=== PATIENT | female | born 1995 | race Caucasian/White ===

== ENCOUNTER 2022-08-20 12:38 | Inpatient (IN) ==
[~2022-08-20 12:38] MED LIST: NALOXONE HCL 0.4 MG/1 ML VIAL/CARP ONE
[2022-08-20] MEDS ORDERED: ONDANSETRON INJ 2 MG/ML 2 ML VIAL IV STA (12:44)
[2022-08-20] MEDS ORDERED: SODIUM CHLORIDE 0.9% IV STA (12:44)
[2022-08-20] MEDS ORDERED: NALOXONE HCL IV STA (12:44)
[2022-08-20] MEDS ORDERED: SODIUM CHLORIDE 0.9% 1000ML 1,000 ML IV ONE ×2 (12:56→14:20)
[2022-08-20] MEDS ORDERED: NALOXONE HCL 0.4 MG/1 ML VIAL/CARP IV ONE (13:00)
[2022-08-20 13:10] LABS: Basophils # (auto) 0.03 K/uL (0-0.2); Basophils % (auto) 0.3 %; Eosinophils # (auto) 0.13 K/uL (0-0.50); Eosinophils % (auto) 1.4 %; Hematocrit (blood only) 43.1 % (37.0-47.0); Hemoglobin 15.8 g/dl (12.0-16.0); Immature Granulocytes # (auto) 0.02 K/uL (0.01-0.20); Immature Granulocytes % (auto) 0.2 %; Lymphocytes # (auto) 1.93 K/uL (1.2-3.4); Lymphocytes % (auto) 20.6 %; Mean Corpuscular Hemoglobin 29.5 pg (25.0-34.0); Mean Corpuscular Hgb Conc 36.7 g/dL (32.0-36.0); Mean Corpuscular Volume 80.4 fL (80.0-100.0); Mean Platelet Volume 10.6 fL (9.4-12.4); Monocytes # (auto) 0.92 K/uL (0.11-0.59); Monocytes % (auto) 9.8 %; Neutrophils # (auto) 6.35 K/uL (1.40-6.50); Neutrophils % (auto) 67.7 %; Platelet Count 395 K/uL (130-400); RDW Coefficient of Variation 11.9 % (11.5-14.5); RDW Standard Deviation 34.8 fL (36.4-46.3); Red Blood Count 5.36 M/uL (4.20-5.40); White Blood Count 9.38 K/ul (4.8-10.8)
--- NOTE | 2022-08-20 13:26 | CT Scan Report ---
HEAD CT NONCONTRAST CT DOSE: 1123.96 mGy.cm HISTORY: Altered mental status. TECHNIQUE: Multiaxial CT images of the head were performed without the use of intravenous contrast. A utomated exposure control was utilized for this study. A dose lowering technique was utilized adheri ng to the principles of ALARA. Comparison: None. Findings: Focal mucosal thickening within the right maxillary sinus. The remaining paranasal sinuses and mastoid air cells are clear. The calvarium and skull base are intact. The ventricles and sulci ar e within normal limits. There is no mass, hematoma, midline shift, or acute infarct. Impression: No acute intracranial abnormality. ACT 112: Negative or not required by law. Electronically signed by: Bhupendra Anton M.D. 08/20/2022 1:25 PM
[2022-08-20 13:28] LABS: Alanine Aminotransferase 20 U/L (7-52); Albumin Level 4.4 gm/dl (3.4-5.0); Alkaline Phosphatase 43 U/L (34-104); Anion Gap 14 (3-11); Aspartate Aminotransferase 24 U/L (13-39); BUN Creatinine Ratio 17.7 (10-20); Bilirubin Direct 0.1 mg/dl (0-0.2); Bilirubin,Total 0.4 mg/dl (0.2-1.0); Blood Urea Nitrogen 14 mg/dl (6-23); Calcium 9.8 mg/dl (8.6-10.3); Carbon Dioxide 19 mmol/L (21-32); Chloride 107 mmol/L (98-107); Creatine Kinase 72 U/L (26-192); Creatinine Clr Calc Pharmacy 111.5 ml/min; Est GFR (African American) 118.9 ml/min; Est GFR (Non-African American) 102.6 ml/min; Glucose 156 mg/dl (70-99(Fasting)); Lipase 38 U/L (11-82); Magnesium 1.9 mg/dl (1.7-2.4); Potassium 2.9 mmol/L (3.5-5.1); Sodium 140 mmol/L (136-145); Total Protein 7.7 gm/dl (6.0-8.3)
--- NOTE | 2022-08-20 13:36 | XRay Report ---
XR chest 1V portable HISTORY: Altered mental status. Found down. COMPARISON: None. FINDINGS: The lungs are clear. Cardiac silhouette is normal in size. No pleural effusions. No pneumot horax. IMPRESSION: No acute process. ACT 112: Negative or not required by law. Electronically signed by: Bhupendra Anton M.D. 08/20/2022 1:34 PM
[2022-08-20 13:37] LABS: Acetaminophen < 3 ug/ml (10-30); Salicylate < 3.0 mg/dl (3.0-30)
[2022-08-20 13:39] LABS: Partial Thromboplastin Time 27.9 Seconds (21.0-31.0); Prothrombin Time 10.8 Seconds (9.0-12.0)
[2022-08-20 13:47] LABS: Base Excess VBG -0.9 mEq/L; HCO3 VBG 19 mmol/L; Oxygen Saturation VBG 99.8 %; PCO2 VBG 20 mmHg (38-50); PO2 VBG 153 mmHg; pH VBG 7.58 (7.36-7.41)
[2022-08-20 13:53] LABS: Appearance Urine Clear (Clear); Bacteria Urine Automated Negative (Negative); Bilirubin Urine Negative (Negative); Blood Urine Negative (Negative); Color Urine Yellow; Epithelial Cell Urine Auto >30 /lpf (0-5); Glucose Urine UA Negative (Negative); Ketones Urine Trace (Negative); Leukocyte Esterase Urine Trace (Negative); Nitrite Urine Negative (Negative); Protein Urine Negative (Negative); RBC Urine Automated 0-4 /hpf (0-4); Specific Gravity Urine 1.013 (1.000-1.030); Urobilinogen Urine Negative (Negative); pH Urine 7.5 (4.5-7.5)
--- NOTE | 2022-08-20 13:54 | CT Scan Report ---
CT cervical spine wo con CLINICAL HISTORY: ams found down TECHNIQUE: Multidetector row helical CT of the cervical spine was performed without administration of intravenous contrast. Coronal and sagittal reformations were obtained. Automated dose lowering techn iques and/or adjustment according to patient size were utilized for this exam. Comparison: None available at the time of this dictation. FINDINGS: No acute fractures or subluxations are identified. The vertebral body heights and disk spaces are wel l maintained. The alignment is normal. Soft tissues are unremarkable. IMPRESSION: No evidence of acute bony injury. ACT 112: Negative or not required by law. Electronically signed by: Marcus Kwon M.D. 08/20/2022 1:53 PM
[2022-08-20 14:14] LABS: Amphetamines+Metham, Urine Neg (Neg); Barbiturates, Urine Neg (Neg); Benzodiazepine, Urine Pos (Neg); Cocaine, Urine Pos (Neg); MDMA (Ecstacy), Urine Neg (Neg); Methadone, Urine Neg (Neg); Opiate, Urine Pos (Neg); Phencyclidine, Urine Neg (Neg)
--- NOTE | 2022-08-20 14:16 | Emergency Department Note ---
History of Present Illness General Chief complaint: Unresponsive Stated complaint: UNRESPONSIVE Time Seen by Provider: 08/20/22 12:43 Source: EMS History of Present Illness Provider complaint: Unresponsive Onset (ago): hour(s) 1 26-year-old female from [facility] facility. Patient is currently there for opioid treatment. Patient was found down in an outdoor gazebo. On arrival the patient was breathing agonal he and diaphoretic. EMS reports that the patient had pinpoint pupils. Patient was given 1 mg of Narcan which improved her mental status. Patient keeps saying "I did not do anything". Home Medications Medication Instructions Recorded Confirmed Type albuterol sulfate 90 mcg/actuation 2 puff inhalation Q4 PRN Shortness 08/20/22 08/20/22 History aerosol inhaler Of Breath Or Wheezing clonidine HCl 0.1 mg tablet 0.1 mg PO TID PRN 08/20/22 08/20/22 History anxiety/restlessness HR>/=70 & BP>100/70 escitalopram oxalate 20 mg tablet 20 mg PO DAILY 08/20/22 08/20/22 History (Lexapro) hydroxyzine pamoate 50 mg capsule 50 mg PO TID PRN as directed 08/20/22 08/20/22 History (Vistaril) multivitamin 1 tab PO DAILY 08/20/22 08/20/22 History olanzapine 10 mg tablet (Zyprexa) 10 mg PO HS 08/20/22 08/20/22 History propranolol 20 mg tablet 20 mg PO Q12 PRN Migraine Headache 08/20/22 08/20/22 History rizatriptan 10 mg tablet 10 mg PO UD PRN Headache 08/20/22 08/20/22 History Allergies Allergy/AdvReac Type Severity Reaction Status Date / Time No Known Allergies Allergy Unverified 08/20/22 15:18 Past Med/Surg History Medical History Asthma Bulimia Depression with anxiety Migraines Polysubstance abuse Suicide attempt Social History Smoking Status: Unknown if ever smoked Feels Safe at Home: Yes Physical Exam Vital Signs Vital Signs - 24 hr 08/20/22 12:25 08/20/22 12:31 08/20/22 12:43 Temperature 33.3 C L Temperature Source Rectal Pulse Rate 64 Pulse Rate [Apical] Pulse Rate from SpO2 Sensor Respiratory Rate 44 H Respiratory Effort / Characteristics Respiratory Depth Shallow Respiratory Pattern Irregular Tachypnea Blood Pressure 147/66 H Blood Pressure [Right Arm] Blood Pressure Mean 93 Blood Pressure Mean [Right Arm] Pulse Oximetry 100 Oxygen Delivery Method Room Air Room Air Room Air Sepsis Recent Fever Within 48 Hours No Sepsis New/Unexplained Change in Mental Status No Sepsis Action Taken by Nursing No Action Required 08/20/22 12:55 08/20/22 12:48 08/20/22 12:51 Temperature Temperature Source Pulse Rate 65 66 Pulse Rate [Apical] Pulse Rate from SpO2 Sensor Respiratory Rate Respiratory Effort / Characteristics Respiratory Depth Respiratory Pattern Blood Pressure 128/68 Blood Pressure [Right Arm] Blood Pressure Mean 88 Blood Pressure Mean [Right Arm] Pulse Oximetry Oxygen Delivery Method Sepsis Recent Fever Within 48 Hours Sepsis New/Unexplained Change in Mental Status Sepsis Action Taken by Nursing 08/20/22 12:51 08/20/22 12:55 08/20/22 12:55 Temperature Temperature Source Pulse Rate 76 65 Pulse Rate [Apical] Pulse Rate from SpO2 Sensor 65 Respiratory Rate Respiratory Effort / Characteristics Respiratory Depth Respiratory Pattern Blood Pressure 139/69 Blood Pressure [Right Arm] Blood Pressure Mean 92 Blood Pressure Mean [Right Arm] Pulse Oximetry 100 Oxygen Delivery Method Sepsis Recent Fever Within 48 Hours Sepsis New/Unexplained Change in Mental Status Sepsis Action Taken by Nursing 08/20/22 13:00 08/20/22 13:00 08/20/22 13:18 Temperature Temperature Source Pulse Rate 66 Pulse Rate [Apical] Pulse Rate from SpO2 Sensor 69 Respiratory Rate Respiratory Effort / Characteristics Respiratory Depth Respiratory Pattern Blood Pressure 137/70 132/73 Blood Pressure [Right Arm] Blood Pressure Mean 92 92 Blood Pressure Mean [Right Arm] Pulse Oximetry 100 Oxygen Delivery Method Sepsis Recent Fever Within 48 Hours Sepsis New/Unexplained Change in Mental Status Sepsis Action Taken by Nursing 08/20/22 13:18 08/20/22 13:30 08/20/22 13:30 Temperature 33.3 C L 33.4 C L Temperature Source Pulse Rate 65 65 Pulse Rate [Apical] Pulse Rate from SpO2 Sensor 65 65 Respiratory Rate Respiratory Effort / Characteristics Respiratory Depth Respiratory Pattern Blood Pressure 132/73 Blood Pressure [Right Arm] Blood Pressure Mean 92 Blood Pressure Mean [Right Arm] Pulse Oximetry 100 100 Oxygen Delivery Method Sepsis Recent Fever Within 48 Hours Sepsis New/Unexplained Change in Mental Status Sepsis Action Taken by Nursing 08/20/22 13:45 08/20/22 13:54 08/20/22 13:54 Temperature 33.4 C L 33.4 C L Temperature Source Pulse Rate 65 61 Pulse Rate [Apical] Pulse Rate from SpO2 Sensor 66 61 Respiratory Rate Respiratory Effort / Characteristics Respiratory Depth Respiratory Pattern Blood Pressure 122/69 Blood Pressure [Right Arm] Blood Pressure Mean 86 Blood Pressure Mean [Right Arm] Pulse Oximetry 100 100 Oxygen Delivery Method Sepsis Recent Fever Within 48 Hours Sepsis New/Unexplained Change in Mental Status Sepsis Action Taken by Nursing 08/20/22 14:00 08/20/22 14:15 08/20/22 14:30 Temperature 33.4 C L 33.5 C L Temperature Source Pulse Rate Pulse Rate [Apical] Pulse Rate from SpO2 Sensor 60 Respiratory Rate Respiratory Effort / Characteristics Respiratory Depth Respiratory Pattern Blood Pressure 130/66 Blood Pressure [Right Arm] Blood Pressure Mean 87 Blood Pressure Mean [Right Arm] Pulse Oximetry 100 Oxygen Delivery Method Sepsis Recent Fever Within 48 Hours Sepsis New/Unexplained Change in Mental Status Sepsis Action Taken by Nursing 08/20/22 14:30 08/20/22 15:45 08/20/22 14:45 Temperature 33.6 C L 34.8 C L 33.8 C L Temperature Source Beard Cath ( Temp Sensing) Pulse Rate 63 67 Pulse Rate [Apical] 66 Pulse Rate from SpO2 Sensor 72 Respiratory Rate 35 H 20 31 H Respiratory Effort / Characteristics Non-Labored Respiratory Depth Normal Respiratory Pattern Blood Pressure Blood Pressure [Right Arm] 125/66 Blood Pressure Mean Blood Pressure Mean [Right Arm] 85 Pulse Oximetry 100 100 Oxygen Delivery Method Room Air Sepsis Recent Fever Within 48 Hours Sepsis New/Unexplained Change in Mental Status Sepsis Action Taken by Nursing 08/20/22 14:46 08/20/22 14:46 08/20/22 15:00 Temperature 33.8 C L 33.9 C L Temperature Source Pulse Rate 74 69 Pulse Rate [Apical] Pulse Rate from SpO2 Sensor 73 Respiratory Rate 18 25 H Respiratory Effort / Characteristics Respiratory Depth Respiratory Pattern Blood Pressure 114/67 Blood Pressure [Right Arm] Blood Pressure Mean 82 Blood Pressure Mean [Right Arm] Pulse Oximetry 100 Oxygen Delivery Method Sepsis Recent Fever Within 48 Hours Sepsis New/Unexplained Change in Mental Status Sepsis Action Taken by Nursing 08/20/22 15:15 08/20/22 15:17 08/20/22 15:17 Temperature 34.1 C L 34.2 C L Temperature Source Pulse Rate 63 77 Pulse Rate [Apical] Pulse Rate from SpO2 Sensor 64 78 Respiratory Rate 38 H 32 H Respiratory Effort / Characteristics Respiratory Depth Respiratory Pattern Blood Pressure 169/74 H Blood Pressure [Right Arm] Blood Pressure Mean 105 Blood Pressure Mean [Right Arm] Pulse Oximetry 100 100 Oxygen Delivery Method Sepsis Recent Fever Within 48 Hours Sepsis New/Unexplained Change in Mental Status Sepsis Action Taken by Nursing 08/20/22 15:35 08/20/22 15:44 08/20/22 15:44 Temperature 34.2 C L 34.6 C L Temperature Source Pulse Rate 64 Pulse Rate [Apical] Pulse Rate from SpO2 Sensor 64 Respiratory Rate 34 H Respiratory Effort / Characteristics Respiratory Depth Respiratory Pattern Blood Pressure 132/77 Blood Pressure [Right Arm] Blood Pressure Mean 95 Blood Pressure Mean [Right Arm] Pulse Oximetry 100 Oxygen Delivery Method Sepsis Recent Fever Within 48 Hours Sepsis New/Unexplained Change in Mental Status Sepsis Action Taken by Nursing 08/20/22 15:45 08/20/22 15:45 Temperature 34.6 C L Temperature Source Pulse Rate 72 Pulse Rate [Apical] Pulse Rate from SpO2 Sensor 70 Respiratory Rate 27 H Respiratory Effort / Characteristics Respiratory Depth Respiratory Pattern Blood Pressure 125/66 Blood Pressure [Right Arm] Blood Pressure Mean 85 Blood Pressure Mean [Right Arm] Pulse Oximetry 100 Oxygen Delivery Method Sepsis Recent Fever Within 48 Hours Sepsis New/Unexplained Change in Mental Status Sepsis Action Taken by Nursing Physical Exam HENT: Exam performed. -Head: Normocephalic and atraumatic. NECK:Neck supple. No JVD present. CV: Normal rate, regular rhythm, normal heart sounds and intact distal pulses. There is no peripheral edema. Palpable radial pulses bue. PULM/CHEST: Effort normal and breath sounds normal. No respiratory distress. No stridor. She has no wheezes. She has no rales. ABD: The abdomen is soft. NEURO: GCS eye subscore is 3. GCS verbal subscore is 3. GCS motor subscore is 4. SKIN: Patient is diaphoretic. Course Course 1243: The patient was evaluated in room A1. A complete history and physical exam was performed Cardiac monitoring: An order was placed for continuous cardiac monitoring. The monitor shows a rate of 100 with sinus rhythm interpreted by me Patient was given additional Narcan 2 mg IV bolus on arrival and the patient became more awake grabbing at staff repeatedly stating "I did not do anything." 1255: Patient found to be hypothermic. Yogesh hugger and warm IV fluids ordered for the patient. Labs and imaging will be done. 1423: Patient remains hypothermic on Yogesh hugger. Patient vomiting. Labs are within normal limits with exception of potassium of 2.9 lactate of 6.2. Imaging within normal limits. Patient will be treated empirically for sepsis with antibiotics and 30 cc/kg normal saline bolus. Urine drug screen is positive for cocaine opiates and benzodiazepines. External medical records were reviewed and the patient's initial urine drug screen from the [facility] was also positive for cocaine and opiates. Patient will be admitted to the [facility] Administered Medications Vancomycin HCl 1,500 mg/ (Sodium Chloride) 530 mls @ 200 mls/hr IV NOW ONE Stop: 08/20/22 16:58 Last Admin: 08/20/22 14:30 Dose: 200 mls/hr Documented By: LEXI Lactated Ringer's (Lr) 1,000 mls @ 999 mls/hr IV .Q1H1M ONE Stop: 08/20/22 17:04 Last Admin: 08/20/22 16:30 Dose: 999 mls/hr Documented By: SAVANA Promethazine HCl 12.5 mg/ (Sodium Chloride) 50.5 mls @ 202 mls/hr IV NOW STA Stop: 08/20/22 16:41 Last Admin: 08/20/22 16:35 Dose: 202 mls/hr Documented By: SAVANA Discontinued Medications Sodium Chloride (Nss 1000ml) 1,000 mls @ 999 mls/hr IV .Q1H1M ONE Stop: 08/20/22 13:56 Last Infusion: 08/20/22 15:17 Dose: 0 mls/hr Documented By: Admin: 08/20/22 13:31 Dose: 999 mls/hr Documented By: LEXI Cefepime HCl (Maxipime) 2,000 mg in 20 mls @ 5 mls/min IV NOW STA; Protocol Stop: 08/20/22 14:23 Last Admin: 08/20/22 14:30 Dose: 5 mls/min Documented By: LEXI Sodium Chloride (Nss 1000ml) 1,000 mls @ 999 mls/hr IV .Q1H1M ONE Stop: 08/20/22 15:20 Last Infusion: 08/20/22 15:52 Dose: 0 mls/hr Documented By: Admin: 08/20/22 14:55 Dose: 999 mls/hr Documented By: LEXI Metoclopramide HCl (Metoclopramide Hcl Inj 5 Mg/Ml 2 Ml Vial) 5 mg IV ONE ONE Stop: 08/20/22 14:51 Last Admin: 08/20/22 14:55 Dose: 5 mg Documented By: LEXI Naloxone HCl (Naloxone Hcl 0.4 Mg/1 Ml Vial/Carp) 2 mg IV NOW ONE Stop: 08/20/22 13:01 Last Admin: 08/20/22 12:40 Dose: 2 mg Documented By: LEXI Naloxone HCl (Naloxone Hcl 0.4 Mg/1 Ml Vial/Carp) Confirm Administered Dose 0.8 mg .ROUTE .STK-MED ONE Stop: 08/20/22 12:39 Last Admin: 08/20/22 13:29 Dose: Not Given Documented By: LEXI Ondansetron HCl (Ondansetron Inj 2 Mg/Ml 2 Ml Vial) 4 mg IV NOW STA Stop: 08/20/22 12:45 Last Admin: 08/20/22 12:42 Dose: 4 mg Documented By: LEXI Promethazine HCl (Promethazine 12.5 Mg/50.5 Ml Nss) Confirm Administered Dose 12.5 mg IV .STK-MED ONE Stop: 08/20/22 16:33 Last Admin: 08/20/22 16:35 Dose: Not Given Documented By: SAVANA Critical Care Time Critical Care Time: Yes Total Critical Care Time: 43 I have personally spent greater than 43 minutes of critical care time in the direct management of this patient. This includes bedside care, interpretation of diagnostic studies, and testing, discussion with consultants, patient, and family members, and other required patient management activities. This 43 minutes is in excess of all separately billable procedures. Medical Decision Making Laboratory Data 08/20/22 12:48 08/20/22 12:48 Lab Results 08/20/22 08/20/22 08/20/22 Range/Units 12:45 12:48 12:48 WBC 9.38 (4.8-10.8) K/ul RBC 5.36 (4.20-5.40) M/uL Hgb 15.8 (12.0-16.0) g/dl Hct 43.1 (37.0-47.0) % MCV 80.4 (80.0-100.0) fL MCH 29.5 (25.0-34.0) pg MCHC 36.7 H (32.0-36.0) g/dL RDW Std Deviation 34.8 L (36.4-46.3) fL RDW Coeff of Robles 11.9 (11.5-14.5) % Plt Count 395 (130-400) K/uL MPV 10.6 (9.4-12.4) fL Immature Gran % (Auto) 0.2 % Neut % (Auto) 67.7 % Lymph % (Auto) 20.6 % Wise % (Auto) 9.8 % Eos % (Auto) 1.4 % Baso % (Auto) 0.3 % Neut # (Auto) 6.35 (1.40-6.50) K/uL Lymph # (Auto) 1.93 (1.2-3.4) K/uL Wise # (Auto) 0.92 H (0.11-0.59) K/uL Eos # (Auto) 0.13 (0-0.50) K/uL Baso # (Auto) 0.03 (0-0.2) K/uL Immature Gran # (Auto) 0.02 (0.01-0.20) K/uL PT (9.0-12.0) Seconds INR (0.9-1.1) APTT (21.0-31.0) Seconds PTT Ratio ABG pH (7.35-7.45) ABG pCO2 (35-46) mmHg ABG pO2 (80-95) mmHg ABG HCO3 (19-24) mmol/L ABG O2 Saturation (90-95) % ABG Base Excess (-9-1.8) mEq/L James Test (Pos) VBG pH (7.36-7.41) VBG pCO2 (38-50) mmHg VBG pO2 mmHg VBG HCO3 mmol/L VBG O2 Saturation % VBG Base Excess mEq/L Oxygen Given Sodium 140 (136-145) mmol/L Potassium 2.9 L (3.5-5.1) mmol/L Chloride 107 (98-107) mmol/L Carbon Dioxide 19 L (21-32) mmol/L Anion Gap 14 H (3-11) BUN 14 (6-23) mg/dl Creatinine 0.79 (0.6-1.2) mg/dl Est Cr Clr Drug Dosing 111.5 ml/min Est GFR ( Amer) 118.9 ml/min Est GFR (Non-Af Amer) 102.6 ml/min BUN/Creatinine Ratio 17.7 (10-20) Glucose 156 H (70-99(Fasting)) mg/dl POC Glucose (70-99) mg/dl Lactate (0.4-2.0) mmol/L Calcium 9.8 (8.6-10.3) mg/dl Magnesium 1.9 (1.7-2.4) mg/dl Total Bilirubin 0.4 (0.2-1.0) mg/dl Direct Bilirubin 0.1 (0-0.2) mg/dl AST 24 (13-39) U/L ALT 20 (7-52) U/L Alkaline Phosphatase 43 (34-104) U/L Total Creatine Kinase 72 (26-192) U/L Troponin I High Sens < 2.3 (0-14) pg/ml Total Protein 7.7 (6.0-8.3) gm/dl Albumin 4.4 (3.4-5.0) gm/dl Lipase 38 (11-82) U/L Procalcitonin (0-0.5) ng/ml TSH (0.300-4.500) uIu/ml Urine Color Urine Appearance (Clear) Urine pH (4.5-7.5) Ur Specific [place] (1.000-1.030) Urine Protein (Negative) Urine Glucose (UA) (Negative) Urine Ketones (Negative) Urine Blood (Negative) Urine Nitrite (Negative) Urine Bilirubin (Negative) Urine Urobilinogen (Negative) Ur Leukocyte Esterase (Negative) Urine WBC (Auto) (0-5) /hpf Urine RBC (Auto) (0-4) /hpf U Hyaline Cast (Auto) (0-5) /lpf U Epithel Cells (Auto) (0-5) /lpf Urine Bacteria (Auto) (Negative) POC Ur Test NEG (NEG) Salicylates (3.0-30) mg/dl Urine Opiates Screen (Neg) Ur Methadone, Qual (Neg) Acetaminophen (10-30) ug/ml Urine Barbiturates (Neg) Ur Phencyclidine (PCP) (Neg) U Amphetamin/Meth Scrn (Neg) MDMA (Ecstasy) Screen (Neg) U Benzodiazepines Scrn (Neg) Ur Cocaine Metabolite (Neg) U Marijuana (THC) Screen (Neg) Ethyl Alcohol mg/dL (<10.0) mg/dl SARS-CoV-2, RNA, NAAT (NEGATIVE) 08/20/22 08/20/22 08/20/22 Range/Units 12:48 12:48 12:48 WBC (4.8-10.8) K/ul RBC (4.20-5.40) M/uL Hgb (12.0-16.0) g/dl Hct (37.0-47.0) % MCV (80.0-100.0) fL MCH (25.0-34.0) pg MCHC (32.0-36.0) g/dL RDW Std Deviation (36.4-46.3) fL RDW Coeff of Robles (11.5-14.5) % Plt Count (130-400) K/uL MPV (9.4-12.4) fL Immature Gran % (Auto) % Neut % (Auto) % Lymph % (Auto) % Wise % (Auto) % Eos % (Auto) % Baso % (Auto) % Neut # (Auto) (1.40-6.50) K/uL Lymph # (Auto) (1.2-3.4) K/uL Wise # (Auto) (0.11-0.59) K/uL Eos # (Auto) (0-0.50) K/uL Baso # (Auto) (0-0.2) K/uL Immature Gran # (Auto) (0.01-0.20) K/uL PT (9.0-12.0) Seconds INR (0.9-1.1) APTT (21.0-31.0) Seconds PTT Ratio ABG pH (7.35-7.45) ABG pCO2 (35-46) mmHg ABG pO2 (80-95) mmHg ABG HCO3 (19-24) mmol/L ABG O2 Saturation (90-95) % ABG Base Excess (-9-1.8) mEq/L James Test (Pos) VBG pH (7.36-7.41) VBG pCO2 (38-50) mmHg VBG pO2 mmHg VBG HCO3 mmol/L VBG O2 Saturation % VBG Base Excess mEq/L Oxygen Given Sodium (136-145) mmol/L Potassium (3.5-5.1) mmol/L Chloride (98-107) mmol/L Carbon Dioxide (21-32) mmol/L Anion Gap (3-11) BUN (6-23) mg/dl Creatinine (0.6-1.2) mg/dl Est Cr Clr Drug Dosing ml/min Est GFR ( Amer) ml/min Est GFR (Non-Af Amer) ml/min BUN/Creatinine Ratio (10-20) Glucose (70-99(Fasting)) mg/dl POC Glucose 147 H (70-99) mg/dl Lactate (0.4-2.0) mmol/L Calcium (8.6-10.3) mg/dl Magnesium (1.7-2.4) mg/dl Total Bilirubin (0.2-1.0) mg/dl Direct Bilirubin (0-0.2) mg/dl AST (13-39) U/L ALT (7-52) U/L Alkaline Phosphatase (34-104) U/L Total Creatine Kinase (26-192) U/L Troponin I High Sens (0-14) pg/ml Total Protein (6.0-8.3) gm/dl Albumin (3.4-5.0) gm/dl Lipase (11-82) U/L Procalcitonin (0-0.5) ng/ml TSH 0.781 (0.300-4.500) uIu/ml Urine Color Urine Appearance (Clear) Urine pH (4.5-7.5) Ur Specific [place] (1.000-1.030) Urine Protein (Negative) Urine Glucose (UA) (Negative) Urine Ketones (Negative) Urine Blood (Negative) Urine Nitrite (Negative) Urine Bilirubin (Negative) Urine Urobilinogen (Negative) Ur Leukocyte Esterase (Negative) Urine WBC (Auto) (0-5) /hpf Urine RBC (Auto) (0-4) /hpf U Hyaline Cast (Auto) (0-5) /lpf U Epithel Cells (Auto) (0-5) /lpf Urine Bacteria (Auto) (Negative) POC Ur Test (NEG) Salicylates < 3.0 L (3.0-30) mg/dl Urine Opiates Screen (Neg) Ur Methadone, Qual (Neg) Acetaminophen < 3 L (10-30) ug/ml Urine Barbiturates (Neg) Ur Phencyclidine (PCP) (Neg) U Amphetamin/Meth Scrn (Neg) MDMA (Ecstasy) Screen (Neg) U Benzodiazepines Scrn (Neg) Ur Cocaine Metabolite (Neg) U Marijuana (THC) Screen (Neg) Ethyl Alcohol mg/dL (<10.0) mg/dl SARS-CoV-2, RNA, NAAT (NEGATIVE) 08/20/22 08/20/22 08/20/22 Range/Units 12:48 12:54 13:18 WBC (4.8-10.8) K/ul RBC (4.20-5.40) M/uL Hgb (12.0-16.0) g/dl Hct (37.0-47.0) % MCV (80.0-100.0) fL MCH (25.0-34.0) pg MCHC (32.0-36.0) g/dL RDW Std Deviation (36.4-46.3) fL RDW Coeff of Robles (11.5-14.5) % Plt Count (130-400) K/uL MPV (9.4-12.4) fL Immature Gran % (Auto) % Neut % (Auto) % Lymph % (Auto) % Wise % (Auto) % Eos % (Auto) % Baso % (Auto) % Neut # (Auto) (1.40-6.50) K/uL Lymph # (Auto) (1.2-3.4) K/uL Wise # (Auto) (0.11-0.59) K/uL Eos # (Auto) (0-0.50) K/uL Baso # (Auto) (0-0.2) K/uL Immature Gran # (Auto) (0.01-0.20) K/uL PT 10.8 (9.0-12.0) Seconds INR 1.0 (0.9-1.1) APTT 27.9 (21.0-31.0) Seconds PTT Ratio 1.0 ABG pH (7.35-7.45) ABG pCO2 (35-46) mmHg ABG pO2 (80-95) mmHg ABG HCO3 (19-24) mmol/L ABG O2 Saturation (90-95) % ABG Base Excess (-9-1.8) mEq/L James Test (Pos) VBG pH (7.36-7.41) VBG pCO2 (38-50) mmHg VBG pO2 mmHg VBG HCO3 mmol/L VBG O2 Saturation % VBG Base Excess mEq/L Oxygen Given Sodium (136-145) mmol/L Potassium (3.5-5.1) mmol/L Chloride (98-107) mmol/L Carbon Dioxide (21-32) mmol/L Anion Gap (3-11) BUN (6-23) mg/dl Creatinine (0.6-1.2) mg/dl Est Cr Clr Drug Dosing ml/min Est GFR ( Amer) ml/min Est GFR (Non-Af Amer) ml/min BUN/Creatinine Ratio (10-20) Glucose (70-99(Fasting)) mg/dl POC Glucose (70-99) mg/dl Lactate (0.4-2.0) mmol/L Calcium (8.6-10.3) mg/dl Magnesium (1.7-2.4) mg/dl Total Bilirubin (0.2-1.0) mg/dl Direct Bilirubin (0-0.2) mg/dl AST (13-39) U/L ALT (7-52) U/L Alkaline Phosphatase (34-104) U/L Total Creatine Kinase (26-192) U/L Troponin I High Sens (0-14) pg/ml Total Protein (6.0-8.3) gm/dl Albumin (3.4-5.0) gm/dl Lipase (11-82) U/L Procalcitonin 0.12 (0-0.5) ng/ml TSH (0.300-4.500) uIu/ml Urine Color Yellow Urine Appearance Clear (Clear) Urine pH 7.5 (4.5-7.5) Ur Specific [place] 1.013 (1.000-1.030) Urine Protein Negative (Negative) Urine Glucose (UA) Negative (Negative) Urine Ketones Trace H (Negative) Urine Blood Negative (Negative) Urine Nitrite Negative (Negative) Urine Bilirubin Negative (Negative) Urine Urobilinogen Negative (Negative) Ur Leukocyte Esterase Trace H (Negative) Urine WBC (Auto) 5-10 H (0-5) /hpf Urine RBC (Auto) 0-4 (0-4) /hpf U Hyaline Cast (Auto) 1-5 (0-5) /lpf U Epithel Cells (Auto) >30 H (0-5) /lpf Urine Bacteria (Auto) Negative (Negative) POC Ur Test (NEG) Salicylates (3.0-30) mg/dl Urine Opiates Screen (Neg) Ur Methadone, Qual (Neg) Acetaminophen (10-30) ug/ml Urine Barbiturates (Neg) Ur Phencyclidine (PCP) (Neg) U Amphetamin/Meth Scrn (Neg) MDMA (Ecstasy) Screen (Neg) U Benzodiazepines Scrn (Neg) Ur Cocaine Metabolite (Neg) U Marijuana (THC) Screen (Neg) Ethyl Alcohol mg/dL (<10.0) mg/dl SARS-CoV-2, RNA, NAAT (NEGATIVE) 08/20/22 08/20/22 08/20/22 Range/Units 13:18 13:38 13:53 WBC (4.8-10.8) K/ul RBC (4.20-5.40) M/uL Hgb (12.0-16.0) g/dl Hct (37.0-47.0) % MCV (80.0-100.0) fL MCH (25.0-34.0) pg MCHC (32.0-36.0) g/dL RDW Std Deviation (36.4-46.3) fL RDW Coeff of Robles (11.5-14.5) % Plt Count (130-400) K/uL MPV (9.4-12.4) fL Immature Gran % (Auto) % Neut % (Auto) % Lymph % (Auto) % Wise % (Auto) % Eos % (Auto) % Baso % (Auto) % Neut # (Auto) (1.40-6.50) K/uL Lymph # (Auto) (1.2-3.4) K/uL Wise # (Auto) (0.11-0.59) K/uL Eos # (Auto) (0-0.50) K/uL Baso # (Auto) (0-0.2) K/uL Immature Gran # (Auto) (0.01-0.20) K/uL PT (9.0-12.0) Seconds INR (0.9-1.1) APTT (21.0-31.0) Seconds PTT Ratio ABG pH (7.35-7.45) ABG pCO2 (35-46) mmHg ABG pO2 (80-95) mmHg ABG HCO3 (19-24) mmol/L ABG O2 Saturation (90-95) % ABG Base Excess (-9-1.8) mEq/L James Test (Pos) VBG pH 7.58 H (7.36-7.41) VBG pCO2 20 L (38-50) mmHg VBG pO2 153 mmHg VBG HCO3 19 mmol/L VBG O2 Saturation 99.8 % VBG Base Excess -0.9 mEq/L Oxygen Given Sodium (136-145) mmol/L Potassium (3.5-5.1) mmol/L Chloride (98-107) mmol/L Carbon Dioxide (21-32) mmol/L Anion Gap (3-11) BUN (6-23) mg/dl Creatinine (0.6-1.2) mg/dl Est Cr Clr Drug Dosing ml/min Est GFR ( Amer) ml/min Est GFR (Non-Af Amer) ml/min BUN/Creatinine Ratio (10-20) Glucose (70-99(Fasting)) mg/dl POC Glucose (70-99) mg/dl Lactate 6.2 H* (0.4-2.0) mmol/L Calcium (8.6-10.3) mg/dl Magnesium (1.7-2.4) mg/dl Total Bilirubin (0.2-1.0) mg/dl Direct Bilirubin (0-0.2) mg/dl AST (13-39) U/L ALT (7-52) U/L Alkaline Phosphatase (34-104) U/L Total Creatine Kinase (26-192) U/L Troponin I High Sens (0-14) pg/ml Total Protein (6.0-8.3) gm/dl Albumin (3.4-5.0) gm/dl Lipase (11-82) U/L Procalcitonin (0-0.5) ng/ml TSH (0.300-4.500) uIu/ml Urine Color Urine Appearance (Clear) Urine pH (4.5-7.5) Ur Specific [place] (1.000-1.030) Urine Protein (Negative) Urine Glucose (UA) (Negative) Urine Ketones (Negative) Urine Blood (Negative) Urine Nitrite (Negative) Urine Bilirubin (Negative) Urine Urobilinogen (Negative) Ur Leukocyte Esterase (Negative) Urine WBC (Auto) (0-5) /hpf Urine RBC (Auto) (0-4) /hpf U Hyaline Cast (Auto) (0-5) /lpf U Epithel Cells (Auto) (0-5) /lpf Urine Bacteria (Auto) (Negative) POC Ur Test (NEG) Salicylates (3.0-30) mg/dl Urine Opiates Screen Pos H (Neg) Ur Methadone, Qual Neg (Neg) Acetaminophen (10-30) ug/ml Urine Barbiturates Neg (Neg) Ur Phencyclidine (PCP) Neg (Neg) U Amphetamin/Meth Scrn Neg (Neg) MDMA (Ecstasy) Screen Neg (Neg) U Benzodiazepines Scrn Pos H (Neg) Ur Cocaine Metabolite Pos H (Neg) U Marijuana (THC) Screen Neg (Neg) Ethyl Alcohol mg/dL (<10.0) mg/dl SARS-CoV-2, RNA, NAAT (NEGATIVE) 08/20/22 08/20/22 08/20/22 Range/Units 13:55 14:33 15:43 WBC (4.8-10.8) K/ul RBC (4.20-5.40) M/uL Hgb (12.0-16.0) g/dl Hct (37.0-47.0) % MCV (80.0-100.0) fL MCH (25.0-34.0) pg MCHC (32.0-36.0) g/dL RDW Std Deviation (36.4-46.3) fL RDW Coeff of Rob[place] (11.5-14.5) % Plt Count (130-400) K/uL MPV (9.4-12.4) fL Immature Gran % (Auto) % Neut % (Auto) % Lymph % (Auto) % Wise % (Auto) % Eos % (Auto) % Baso % (Auto) % Neut # (Auto) (1.40-6.50) K/uL Lymph # (Auto) (1.2-3.4) K/uL Wise # (Auto) (0.11-0.59) K/uL Eos # (Auto) (0-0.50) K/uL Baso # (Auto) (0-0.2) K/uL Immature Gran # (Auto) (0.01-0.20) K/uL PT (9.0-12.0) Seconds INR (0.9-1.1) APTT (21.0-31.0) Seconds PTT Ratio ABG pH 7.50 H (7.35-7.45) ABG pCO2 20 L (35-46) mmHg ABG pO2 133 H (80-95) mmHg ABG HCO3 16 L (19-24) mmol/L ABG O2 Saturation 99.2 H (90-95) % ABG Base Excess -5.3 (-9-1.8) mEq/L James Test POS (Pos) VBG pH (7.36-7.41) VBG pCO2 (38-50) mmHg VBG pO2 mmHg VBG HCO3 mmol/L VBG O2 Saturation % VBG Base Excess mEq/L Oxygen Given ROOM AIR Sodium (136-145) mmol/L Potassium (3.5-5.1) mmol/L Chloride (98-107) mmol/L Carbon Dioxide (21-32) mmol/L Anion Gap (3-11) BUN (6-23) mg/dl Creatinine (0.6-1.2) mg/dl Est Cr Clr Drug Dosing ml/min Est GFR ( Amer) ml/min Est GFR (Non-Af Amer) ml/min BUN/Creatinine Ratio (10-20) Glucose (70-99(Fasting)) mg/dl POC Glucose (70-99) mg/dl Lactate (0.4-2.0) mmol/L Calcium (8.6-10.3) mg/dl Magnesium (1.7-2.4) mg/dl Total Bilirubin (0.2-1.0) mg/dl Direct Bilirubin (0-0.2) mg/dl AST (13-39) U/L ALT (7-52) U/L Alkaline Phosphatase (34-104) U/L Total Creatine Kinase (26-192) U/L Troponin I High Sens (0-14) pg/ml Total Protein (6.0-8.3) gm/dl Albumin (3.4-5.0) gm/dl Lipase (11-82) U/L Procalcitonin (0-0.5) ng/ml TSH (0.300-4.500) uIu/ml Urine Color Urine Appearance (Clear) Urine pH (4.5-7.5) Ur Specific [place] (1.000-1.030) Urine Protein (Negative) Urine Glucose (UA) (Negative) Urine Ketones (Negative) Urine Blood (Negative) Urine Nitrite (Negative) Urine Bilirubin (Negative) Urine Urobilinogen (Negative) Ur Leukocyte Esterase (Negative) Urine WBC (Auto) (0-5) /hpf Urine RBC (Auto) (0-4) /hpf U Hyaline Cast (Auto) (0-5) /lpf U Epithel Cells (Auto) (0-5) /lpf Urine Bacteria (Auto) (Negative) POC Ur Test (NEG) Salicylates (3.0-30) mg/dl Urine Opiates Screen (Neg) Ur Methadone, Qual (Neg) Acetaminophen (10-30) ug/ml Urine Barbiturates (Neg) Ur Phencyclidine (PCP) (Neg) U Amphetamin/Meth Scrn (Neg) MDMA (Ecstasy) Screen (Neg) U Benzodiazepines Scrn (Neg) Ur Cocaine Metabolite (Neg) U Marijuana (THC) Screen (Neg) Ethyl Alcohol mg/dL < 10.0 (<10.0) mg/dl SARS-CoV-2, RNA, NAAT NEGATIVE (NEGATIVE) 08/20/22 Range/Units 15:48 WBC (4.8-10.8) K/ul RBC (4.20-5.40) M/uL Hgb (12.0-16.0) g/dl Hct (37.0-47.0) % MCV (80.0-100.0) fL MCH (25.0-34.0) pg MCHC (32.0-36.0) g/dL RDW Std Deviation (36.4-46.3) fL RDW Coeff of Robles (11.5-14.5) % Plt Count (130-400) K/uL MPV (9.4-12.4) fL Immature Gran % (Auto) % Neut % (Auto) % Lymph % (Auto) % Wise % (Auto) % Eos % (Auto) % Baso % (Auto) % Neut # (Auto) (1.40-6.50) K/uL Lymph # (Auto) (1.2-3.4) K/uL Wise # (Auto) (0.11-0.59) K/uL Eos # (Auto) (0-0.50) K/uL Baso # (Auto) (0-0.2) K/uL Immature Gran # (Auto) (0.01-0.20) K/uL PT (9.0-12.0) Seconds INR (0.9-1.1) APTT (21.0-31.0) Seconds PTT Ratio ABG pH (7.35-7.45) ABG pCO2 (35-46) mmHg ABG pO2 (80-95) mmHg ABG HCO3 (19-24) mmol/L ABG O2 Saturation (90-95) % ABG Base Excess (-9-1.8) mEq/L James Test (Pos) VBG pH (7.36-7.41) VBG pCO2 (38-50) mmHg VBG pO2 mmHg VBG HCO3 mmol/L VBG O2 Saturation % VBG Base Excess mEq/L Oxygen Given Sodium (136-145) mmol/L Potassium (3.5-5.1) mmol/L Chloride (98-107) mmol/L Carbon Dioxide (21-32) mmol/L Anion Gap (3-11) BUN (6-23) mg/dl Creatinine (0.6-1.2) mg/dl Est Cr Clr Drug Dosing ml/min Est GFR ( Amer) ml/min Est GFR (Non-Af Amer) ml/min BUN/Creatinine Ratio (10-20) Glucose (70-99(Fasting)) mg/dl POC Glucose (70-99) mg/dl Lactate 3.7 H* (0.4-2.0) mmol/L Calcium (8.6-10.3) mg/dl Magnesium (1.7-2.4) mg/dl Total Bilirubin (0.2-1.0) mg/dl Direct Bilirubin (0-0.2) mg/dl AST (13-39) U/L ALT (7-52) U/L Alkaline Phosphatase (34-104) U/L Total Creatine Kinase (26-192) U/L Troponin I High Sens (0-14) pg/ml Total Protein (6.0-8.3) gm/dl Albumin (3.4-5.0) gm/dl Lipase (11-82) U/L Procalcitonin (0-0.5) ng/ml TSH (0.300-4.500) uIu/ml Urine Color Urine Appearance (Clear) Urine pH (4.5-7.5) Ur Specific [place] (1.000-1.030) Urine Protein (Negative) Urine Glucose (UA) (Negative) Urine Ketones (Negative) Urine Blood (Negative) Urine Nitrite (Negative) Urine Bilirubin (Negative) Urine Urobilinogen (Negative) Ur Leukocyte Esterase (Negative) Urine WBC (Auto) (0-5) /hpf Urine RBC (Auto) (0-4) /hpf U Hyaline Cast (Auto) (0-5) /lpf U Epithel Cells (Auto) (0-5) /lpf Urine Bacteria (Auto) (Negative) POC Ur Test (NEG) Salicylates (3.0-30) mg/dl Urine Opiates Screen (Neg) Ur Methadone, Qual (Neg) Acetaminophen (10-30) ug/ml Urine Barbiturates (Neg) Ur Phencyclidine (PCP) (Neg) U Amphetamin/Meth Scrn (Neg) MDMA (Ecstasy) Screen (Neg) U Benzodiazepines Scrn (Neg) Ur Cocaine Metabolite (Neg) U Marijuana (THC) Screen (Neg) Ethyl Alcohol mg/dL (<10.0) mg/dl SARS-CoV-2, RNA, NAAT (NEGATIVE) Imaging Data Attestation: I personally reviewed and interpreted this imaging study as follows: My Impression: CT head: No [facility] Radiologist's Impression: Cervical Spine CT 08/20/22 12:58 CT cervical spine wo con CLINICAL HISTORY: ams found down TECHNIQUE: Multidetector row helical CT of the cervical spine was performed wi thout administration of intravenous contrast. Coronal and sagittal reformations were obtained. Automated dose lowering techniques and/or adjustment according to patient size were utilized for this exam. Comparison: None available at the time of this dictation. FINDINGS: No acute fractures or subluxations are identified. The vertebral body heights and disk spaces are well maintained. The alignment is normal. Soft tissues are unremarkable. IMPRESSION: No evidence of acute bony injury. ACT 112: Negative or not required by law. Electronically signed by: Marcus Kwon M.D. 08/20/2022 1:53 PM Chest X-Ray 08/20/22 12:58 XR chest 1V portable HISTORY: Altered mental status. Found down. COMPARISON: None. FINDINGS: The lungs are clear. Cardiac silhouette is normal in size. No pleural effusions. No pneumothorax. IMPRESSION: No acute process. ACT 112: Negative or not required by law. Electronically signed by: Bhupendra Anton M.D. 08/20/2022 1:[address] 08/20/22 12:[address] DOSE: 1123.96 mGy.cm HISTORY: Altered mental status. TECHNIQUE: Multiaxial CT images of the head were performed without the use of intravenous contrast. Automated exposure control was utilized for this study. A dose lowering technique was utilized adhering to the principles of ALARA. Comparison: None. Findings: Focal mucosal thickening within the right maxillary sinus. The remaining paranasal sinuses and mastoid air cells are clear. The calvarium and skull base are intact. The ventricles and sulci are within normal limits. There is no mass, hematoma, midline shift, or acute infarct. Impression: No acute intracranial abnormality. ACT 112: Negative or not required by law. Electronically signed by: Bhupendra Anton M.D. 08/20/2022 1:25 PM ECG Data Attestation: I personally reviewed and interpreted this ECG as follows: Rate (beats per minute): 66 Rhythm: + sinus with SA ECG Intervals/blocks: + Normal QRS and + Normal LA ECG ST segments: + Normal ST segments Additional Comments: QTc 536 MDM Narrative 1243: The patient was evaluated in room A1. A complete history and physical exam was performed Cardiac monitoring: An order was placed for continuous cardiac monitoring. The monitor shows a rate of 100 with sinus rhythm interpreted by me Patient was given additional Narcan 2 mg IV bolus on arrival and the patient became more awake grabbing at staff repeatedly stating "I did not do anything." 1255: Patient found to be hypothermic. Yogesh ballard warm IV fluids ordered for the patient. Labs and imaging will be done. 1423: Patient remains hypothermic on Yogesh hugger. Patient vomiting. Labs are within normal limits with exception of potassium of 2.9 lactate of 6.2. Imaging within normal limits. Patient will be treated empirically for sepsis with antibiotics and 30 cc/kg normal saline bolus. Urine drug screen is positive for cocaine opiates and benzodiazepines. External medical records were reviewed and the patient's initial urine drug screen from the [facility] was also positive for cocaine and opiates. Patient will be admitted to the [place] [facility] team Impression & Plan Hypothermia, Polysubstance abuse, Sepsis Discharge Plan Visit Data Chief Complaint: Unresponsive Stated Complaint: UNRESPONSIVE ED Provider: Patrick Madrigal Discharge Problem: Hypothermia, Polysubstance abuse, Sepsis Patient Disposition: Admitted As Inpatient Forms Stand Alone Forms: My [facility] Prescriptions Prescriptions: No Action multivitamin Tablet 1 tab PO DAILY clonidine HCl 0.1 mg Tablet 0.1 mg PO TID PRN (Reason: anxiety/restlessness HR>/=70 & BP>100/70) olanzapine [Zyprexa] 10 mg Tablet 10 mg PO HS albuterol sulfate 90 mcg/actuation Hfa Aerosol Inhaler 2 puff INHALATION Q4 PRN (Reason: Shortness Of Breath Or Wheezing) propranolol 20 mg Tablet 20 mg PO Q12 PRN (Reason: Migraine Headache) escitalopram oxalate [Lexapro] 20 mg Tablet 20 mg PO DAILY hydroxyzine pamoate [Vistaril] 50 mg Capsule 50 mg PO TID PRN (Reason: as directed) rizatriptan 10 mg Tablet 10 mg PO UD PRN (Reason: Headache) Rx Instructions: take 1 tab at onset of headache; if no relief may repeat 1 tab after at least 2 hrs Referrals Referrals: PCP,NO [Primary Care Provider] -
[2022-08-20] MEDS ORDERED: CEFEPIME 2,000 MG/20 ML VIAL IV STA (14:20)
[2022-08-20] MEDS ORDERED: VANCOMYCIN CONSULT ACTIVE PRN (14:20)
[2022-08-20] MEDS ORDERED: VANCOMYCIN HCL 1,500 MG in SODIUM CHLORIDE 0.9% 500 ML IV ONE (14:20)
[2022-08-20] MEDS ORDERED: METOCLOPRAMIDE HCL INJ 5 MG/ML 2 ML VIAL IV ONE (14:50)
--- NOTE | 2022-08-20 14:56 | History & Physical Report ---
Date of Service August 20, 2022 Assessment & Plan (1) Unresponsive episode: Plan: Methamphetamine/benzodiazepine overdose vs. serotonin toxicity vs. opiate withdrawal Minimally reactive mydriasis, hyperreflexia, drowsy, (initial shallow breathing per EMS note, now over compensating tachypnea after Narcan) Now in opiate withdrawal following Narcan use Updated mother (Raissa Mac) over the phone, (2) Hypothermia: Plan: Concerning for sepsis vs. environmental Empiric antibiotics with vancomycin/cefepime pending blood culture results Lactate 6.2 -> 3.7 after 2L NSS bolus, additional LR 1L bolus now then maintenance @ 125ml/hr (3) Polysubstance abuse: Plan: Positive for marijuana, cocaine, opiates and Fentanyl on admission to [facility] (4) Prolonged QT interval: Plan: Avoid Lexapro and ondansetron Repeat EKG in AM (5) Depression with anxiety: Plan: Holding Lexapro due to possible serotonin toxicity Treat agitation with lorazepam (6) Opioid abuse with withdrawal: Plan: RR > 8, will avoid further Narcan as now going through iatrogenic withdrawal with abdominal pain, nausea, vomiting (7) Nausea and vomiting: Plan: Suspect due to iatrogenic opiate withdrawal Phenergan 12.5mg IV q6h PRN, lorazepam 2nd line, Compazine third line Will initially hold off further ondansetron given prolonged QT Plan VTE Prophylaxis - low risk Diet - NPO Disposition - admit to PCU Admission and Anticipated Discharge Date Admission Date: August 20, 2022 History of Present Illness Chief Complaint: Unresponsive episode Primary Care Provider: NO PCP Cristin Mac is a 26 year old female who presents to the ER via EMS from drug and alcohol rehabilitation at [facility] due to unresponsive episode. Unable to get any history from the patient therefore history obtained from [facility], EMS and ER notes and providers. Admitted to [facility] on August 18, 2022 with polydrug abuse - heroin, fentanyl, cocaine and alcohol. At 14 yo she started smoking cannabis, 18 yo snorting cocaine, 19 yo started mushrooms, ecstasy, MDMA. Progressed to heroin 4 yo. Last used heroin/fentanyl 08/18. She started Valium for withdrawal symptoms yesterday. Lexapro given last night. Propranolol yesterday morning for migraine. Vistaril and clonidine given yesterday. EMS report patient found lying on bench outside gazebo located outside medical intake of clinic. Found by staff unconscious and unresponsive shortly before lunch - reportedly active with morning activities. Pupils dilated and non- reactive. Allergies Allergy/AdvReac Type Severity Reaction Status Date / Time No Known Allergies Allergy Unverified 08/20/22 15:18 Home Medications Medication Instructions Recorded Confirmed Type albuterol sulfate 90 mcg/actuation 2 puff inhalation Q4 PRN Shortness 08/20/22 08/20/22 History aerosol inhaler Of Breath Or Wheezing clonidine HCl 0.1 mg tablet 0.1 mg PO TID PRN 08/20/22 08/20/22 History anxiety/restlessness HR>/=70 & BP>100/70 escitalopram oxalate 20 mg tablet 20 mg PO DAILY 08/20/22 08/20/22 History (Lexapro) hydroxyzine pamoate 50 mg capsule 50 mg PO TID PRN as directed 08/20/22 08/20/22 History (Vistaril) multivitamin 1 tab PO DAILY 08/20/22 08/20/22 History olanzapine 10 mg tablet (Zyprexa) 10 mg PO HS 08/20/22 08/20/22 History propranolol 20 mg tablet 20 mg PO Q12 PRN Migraine Headache 08/20/22 08/20/22 History rizatriptan 10 mg tablet 10 mg PO UD PRN Headache 08/20/22 08/20/22 History Past Med/Surg History Medical History Asthma Bulimia Depression with anxiety Migraines Polysubstance abuse Suicide attempt Social History Smoking Status: Unknown if ever smoked Hx Substance Use: Yes Last Used Substance: Unknown Preferred Language: Thai Pricing Associate Required: No Beliefs That Will Affect Care: None Current Living Situation: Other Current Living Situation Comment: unk, came from [facility] Feels Safe at Home: Yes Assistive Devices: None Review of Systems Review of Systems: Unobtainable due to cognitive status Physical Exam Constitutional: well developed and + acute distress (vomiting); + not well nourished Eyes: + abnormal pupil size (mydriasis, minimally reactive) ENMT: Mouth: + dry oral mucous membranes Respiratory: + tachypneic; no respiratory distress, no labored breathing, no r etractions and does not use accessory muscles Auscultation: lungs clear to auscultation bilaterally; breath sounds present, no diminished lung sounds, no crackles, no rales, no rhonchi and no wheezes Cardiovascular: Rate/Rhythm: regular rate and regular rhythm Heart Sounds: no murmur Extremities: normal capillary refill; no calf tenderness and no pedal edema Gastrointestinal (Abdomen): Percussion/Palpation: + abdomen tender and abdomen soft; no guarding and abdomen not rigid Skin: no rashes, warm and dry Neurologic: awake (GCS 10 E1V4M5) and + confused; + abnormal deep tendon reflexes (4+ b/l equal knee and biceps), + does not move all extremities (not following commands) and no focal motor deficits (unable to adequately examine as not following commands) Motor/Sensory: no tremor Psychiatric: Orientation: alert (to voice); + not oriented x 3 Results & Data Results & Data Vital Signs (Past 12 Hours) Vital Signs Temp Pulse Resp BP Pulse Ox O2 Del Method 08/20/22 14:30 33.6 C L 63 35 H 08/20/22 14:30 130/66 08/20/22 14:15 33.5 C L 08/20/22 14:00 33.4 C L 100 08/20/22 13:54 33.4 C L 61 100 08/20/22 13:54 122/69 08/20/22 13:45 33.4 C L 65 100 08/20/22 13:30 33.4 C L 65 100 08/20/22 13:30 132/73 08/20/22 13:18 33.3 C L 65 100 08/20/22 13:18 132/73 08/20/22 13:00 66 100 08/20/22 13:00 137/70 08/20/22 12:55 139/69 08/20/22 12:55 65 100 08/20/22 12:51 76 08/20/22 12:51 128/68 08/20/22 12:48 66 08/20/22 12:55 65 08/20/22 12:43 Room Air 08/20/22 12:31 Room Air 08/20/22 12:25 33.3 C L 64 44 H 147/66 H 100 Room Air Laboratory Results Abnormal lab results 08/20/22 08/20/22 08/20/22 Range/Units 12:48 12:48 12:48 MCHC 36.7 H (32.0-36.0) g/dL RDW Std Deviation 34.8 L (36.4-46.3) fL Morrison # (Auto) 0.92 H (0.11-0.59) K/uL VBG pH (7.36-7.41) VBG pCO2 (38-50) mmHg Potassium 2.9 L (3.5-5.1) mmol/L Carbon Dioxide 19 L (21-32) mmol/L Anion Gap 14 H (3-11) Glucose 156 H (70-99(Fasting)) mg/dl POC Glucose (70-99) mg/dl Lactate (0.4-2.0) mmol/L Urine Ketones (Negative) Ur Leukocyte Esterase (Negative) Urine WBC (Auto) (0-5) /hpf U Epithel Cells (Auto) (0-5) /lpf Salicylates < 3.0 L (3.0-30) mg/dl Urine Opiates Screen (Neg) Acetaminophen < 3 L (10-30) ug/ml U Benzodiazepines Scrn (Neg) Ur Cocaine Metabolite (Neg) 08/20/22 08/20/22 08/20/22 Range/Units 12:48 13:18 13:18 MCHC (32.0-36.0) g/dL RDW Std Deviation (36.4-46.3) fL Morrison # (Auto) (0.11-0.59) K/uL VBG pH (7.36-7.41) VBG pCO2 (38-50) mmHg Potassium (3.5-5.1) mmol/L Carbon Dioxide (21-32) mmol/L Anion Gap (3-11) Glucose (70-99(Fasting)) mg/dl POC Glucose 147 H (70-99) mg/dl Lactate (0.4-2.0) mmol/L Urine Ketones Trace H (Negative) Ur Leukocyte Esterase Trace H (Negative) Urine WBC (Auto) 5-10 H (0-5) /hpf U Epithel Cells (Auto) >30 H (0-5) /lpf Salicylates (3.0-30) mg/dl Urine Opiates Screen Pos H (Neg) Acetaminophen (10-30) ug/ml U Benzodiazepines Scrn Pos H (Neg) Ur Cocaine Metabolite Pos H (Neg) 08/20/22 08/20/22 Range/Units 13:38 13:53 MCHC (32.0-36.0) g/dL RDW Std Deviation (36.4-46.3) fL Morrison # (Auto) (0.11-0.59) K/uL VBG pH 7.58 H (7.36-7.41) VBG pCO2 20 L (38-50) mmHg Potassium (3.5-5.1) mmol/L Carbon Dioxide (21-32) mmol/L Anion Gap (3-11) Glucose (70-99(Fasting)) mg/dl POC Glucose (70-99) mg/dl Lactate 6.2 H* (0.4-2.0) mmol/L Urine Ketones (Negative) Ur Leukocyte Esterase (Negative) Urine WBC (Auto) (0-5) /hpf U Epithel Cells (Auto) (0-5) /lpf Salicylates (3.0-30) mg/dl Urine Opiates Screen (Neg) Acetaminophen (10-30) ug/ml U Benzodiazepines Scrn (Neg) Ur Cocaine Metabolite (Neg) Diagnostic Findings HEAD CT NONCONTRAST CT DOSE: 1123.96 mGy.cm HISTORY: Altered mental status. TECHNIQUE: Multiaxial CT images of the head were performed without the use of intravenous contrast. Automated exposure control was utilized for this study. A dose lowering technique was utilized adhering to the principles of ALARA. Comparison: None. Findings: Focal mucosal thickening within the right maxillary sinus. The remaining paranasal sinuses and mastoid air cells are clear. The calvarium and skull base are intact. The ventricles and sulci are within normal limits. There is no mass, hematoma, midline shift, or acute infarct. Impression: No acute intracranial abnormality. CT cervical spine wo con CLINICAL HISTORY: ams found down TECHNIQUE: Multidetector row helical CT of the cervical spine was performed without administration of intravenous contrast. Coronal and sagittal reformations were obtained. Automated dose lowering techniques and/or adjustment according to patient size were utilized for this exam. Comparison: None available at the time of this dictation. FINDINGS: No acute fractures or subluxations are identified. The vertebral body heights and disk spaces are well maintained. The alignment is normal. Soft tissues are unremarkable. IMPRESSION: No evidence of acute bony injury. XR chest 1V portable HISTORY: Altered mental status. Found down. COMPARISON: None. FINDINGS: The lungs are clear. Cardiac silhouette is normal in size. No pleural effusions. No pneumothorax. IMPRESSION: No acute process. Medications Administered ER Medications Given: Ondansetron 4mg IV Naloxone 2mg IV NSS 1L bolus x2 Cefepime 2000mg IV Metoclopramide 5mg IV ECG Rate (beats per minute): 66 Rhythm: normal sinus Findings: + prolonged QT (QTc 536ms) Comparison ECG Date: no prior available Code Status & VTE Plan Code Status Full - presumed VTE Prophylaxis Plan VTE Prophylaxis will be ordered: Yes PG Care Time/CCT Total # of Minutes Spent Total Time Spent with Patient: Total time spent is greater than 50% in coordination of care (as documented) at patient's floor/unit and/or counseling patient: Coding Level of Care Code 01080 INT INP/OBS CARE 3/75MIN Diagnoses Unresponsive episode R40.4 Hypothermia T68.XXXA Polysubstance abuse F19.10 Prolonged QT interval R94.31 Depression with anxiety F41.8 Opioid abuse with withdrawal F11.13 Nausea and vomiting R11.2
[2022-08-20 15:46] LABS: Troponin I High Sensitivity < 2.3 pg/ml (0-14)
[2022-08-20 15:52] LABS: Base Excess ABG -5.3 mEq/L (-9-1.8); HCO3 ABG 16 mmol/L (19-24); Oxygen Saturation ABG 99.2 % (90-95); PCO2 ABG 20 mmHg (35-46); PO2 ABG 133 mmHg (80-95)
[2022-08-20 15:53] LABS: Allen Test POS (Pos)
[2022-08-20] MEDS ORDERED: LACTATED RINGER'S 1,000 ML IV ONE ×2 (16:04→22:56)
[2022-08-20] MEDS ORDERED: PROMETHAZINE HCL 12.5 MG in SODIUM CHLORIDE 0.9% 50 ML IV STA (16:27)
[2022-08-20] MEDS ORDERED: PROMETHAZINE 12.5 MG/50.5 ML NSS IV ONE (16:32)
[2022-08-20] MEDS ORDERED: OPTIRAY 320 100ml IV ONE (17:10)
--- NOTE | 2022-08-20 17:24 | CT Scan Report ---
ABDOMEN AND PELVIS CT WITH IV CONTRAST CT DOSE: 1272.76 mGy.cm HISTORY: Vomiting. Generalized abdominal pain, sepsis TECHNIQUE: Multiaxial CT images of the abdomen and pelvis were performed following the use of intrave nous contrast. A dose lowering technique was utilized adhering to the principles of ALARA. COMPARISON STUDY: None. FINDINGS: The lung bases are clear. No pneumoperitoneum. No pneumatosis. Bilateral L5 spondylolysis w ith associated grade 1 anterolisthesis. The no acute fractures identified. Suboptimal evaluation of t he abdomen and pelvis due to streak artifact from the patient's overlapping arms. However, the liver, gallbladder, spleen, adrenal glands, pancreas, and kidneys are unremarkable. No hydronephrosis. The main portal vein is patent. Normal caliber abdominal aorta. No retroperitoneal hematoma or lymphadeno esa. No pelvic free fluid. The bladder is decompressed by Beard catheter. The uterus and left ovary are unremarkable. There is a 1.8 cm right ovarian cyst which is considered to be within the range of normal limits. There is moderate well-formed stool seen throughout the majority of the colon and rec angela. No bowel wall thickening or obstruction. Normal appendix. IMPRESSION: 1. No bowel wall thickening or obstruction. 2. Moderate fecal retention. 3. Normal appendix. 4. No acute traumatic process within the abdomen or pelvis. ACT 112: Negative or not required by law. Electronically signed by: Bhupendra Anton M.D. 08/20/2022 5:21 PM
[2022-08-20] MEDS: PROMETHAZINE HCL 12.5 MG in SODIUM CHLORIDE 0.9% 50 ML IV PRN (17:58)
[2022-08-20] MEDS: LACTATED RINGER'S 1,000 ML IV SCH ×2 (18:26→22:13)
[2022-08-20] MEDS ORDERED: LORazepam 2 MG/1 ML VIAL IV PRN (19:45)
[2022-08-20 21:28] LABS: Allen Test POS (Pos); Base Excess ABG -3.2 mEq/L (-9-1.8); HCO3 ABG 20 mmol/L (19-24); Oxygen Saturation ABG 98.8 % (90-95); PCO2 ABG 29 mmHg (35-46); PO2 ABG 102 mmHg (80-95); pH ABG 7.44 (7.35-7.45)
[2022-08-20] MEDS: CEFEPIME 2,000 MG in SYRINGE 0 ML IV SCH (22:06)
[2022-08-20] MEDS: PROCHLORPERAZINE 5 MG in SYRINGE 4 ML IV PRN (22:06)
[2022-08-20 22:19] LABS: Albumin Level 4.2 gm/dl (3.4-5.0); Bilirubin,Total 0.4 mg/dl (0.2-1.0); Calcium 8.8 mg/dl (8.6-10.3); Potassium 3.5 mmol/L (3.5-5.1)
[2022-08-20 22:25] LABS: Albumin Globulin Ratio 1.2 (0.9-2); BUN Creatinine Ratio 21.3 (10-20); Creatinine Clr Calc Pharmacy 114.9 ml/min; Est GFR (African American) 126.6 ml/min; Est GFR (Non-African American) 109.2 ml/min; Globulin 3.4 gm/dl (2.5-4.0); Total Protein 7.6 gm/dl (6.0-8.3)
[2022-08-21] MEDS: PANTOprazole 40 MG in SYRINGE 0 ML IV SCH ×2 (00:20→10:48)
[2022-08-21] MEDS ORDERED: VANCOMYCIN HCL 1,000 MG in SODIUM CHLORIDE 0.9% 250 ML IV SCH ×2 (02:00→10:00)
[2022-08-21 06:06] LABS: HCO3 ABG 20 mmol/L (19-24); Oxygen Saturation ABG 98.8 % (90-95); PCO2 ABG 28 mmHg (35-46); PO2 ABG 98 mmHg (80-95); pH ABG 7.47 (7.35-7.45)
[2022-08-21 06:09] LABS: Allen Test Pos (Pos)
[2022-08-21 06:31] LABS: Albumin Globulin Ratio 1.3 (0.9-2); Albumin Level 3.7 gm/dl (3.4-5.0); Bilirubin,Total 0.3 mg/dl (0.2-1.0); Calcium 8.4 mg/dl (8.6-10.3); Est GFR (Non-African American) 128.5 ml/min; Globulin 2.8 gm/dl (2.5-4.0); Magnesium 1.4 mg/dl (1.7-2.4); Phosphorus 3.9 mg/dl (2.5-4.9); Potassium 3.4 mmol/L (3.5-5.1); Total Protein 6.5 gm/dl (6.0-8.3)
[2022-08-21 06:34] LABS: Hematocrit (blood only) 34.9 % (37.0-47.0); Hemoglobin 12.6 g/dl (12.0-16.0); Immature Granulocytes # (auto) 0.07 K/uL (0.01-0.20); Immature Granulocytes % (auto) 0.5 %; Lymphocytes # (auto) 0.59 K/uL (1.2-3.4); Lymphocytes % (auto) 4.5 %; Mean Corpuscular Hemoglobin 29.9 pg (25.0-34.0); Mean Corpuscular Hgb Conc 36.1 g/dL (32.0-36.0); Mean Corpuscular Volume 82.7 fL (80.0-100.0); Mean Platelet Volume 10.9 fL (9.4-12.4); Monocytes # (auto) 0.79 K/uL (0.11-0.59); Neutrophils # (auto) 11.68 K/uL (1.40-6.50); Platelet Count 279 K/uL (130-400); RDW Coefficient of Variation 12.3 % (11.5-14.5); RDW Standard Deviation 37.2 fL (36.4-46.3); Red Blood Count 4.22 M/uL (4.20-5.40); White Blood Count 13.13 K/ul (4.8-10.8)
[2022-08-21] MEDS: CEFEPIME 2,000 MG in SYRINGE 0 ML IV SCH ×3 (06:49→23:12)
[2022-08-21] MEDS: LACTATED RINGER'S 1,000 ML IV SCH ×2 (07:41→15:56)
[2022-08-21] MEDS: PROCHLORPERAZINE 5 MG in SYRINGE 4 ML IV PRN ×2 (08:07→17:52)
[2022-08-21] MEDS ORDERED: POLYETHYLENE (MIRALAX) 17 GM PACK PO PRN (08:07)
--- NOTE | 2022-08-21 08:11 | Hospitalist Progress Note ---
Date of Service August 21, 2022 Assessment & Plan (1) Unresponsive episode: Plan: Suspect overdose vs. serotonin toxicity vs. opiate withdrawal (patient denies illicit substance use at facility however patient's presentation on admission and improvement with Narcan suggests that possibility) Minimally reactive mydriasis, hyperreflexia, drowsy on admission (initial shallow breathing per EMS note) Now in suspected opiate withdrawal following Narcan use Patient is unsure if she wants to go back to rehab on discharge, however, her belongings are there; Case Management working this out with patient With Hx recent heroin use, elevated WBC count on admission, BCx were collected, will be at 48 hours on 08/22 at 2pm Updated mother (Raissa Reha) over the phone 08/21 (phone number [phone]) (2) Hypothermia: Plan: Concerning for sepsis vs. environmental Empiric antibiotics with vancomycin/cefepime pending blood culture results Lactate 6.2 -> 1.0 with fluid resuscitation (3) Polysubstance abuse: Plan: Positive for marijuana, cocaine, opiates and Fentanyl on admission to [facility], positive for opiates, benzos, cocaine here with specificities pending (4) Prolonged QT interval: Plan: Avoid Lexapro and ondansetron Repeat EKG daily while admitted (5) Depression with anxiety: Plan: Holding Lexapro due to possible serotonin toxicity Treat agitation with lorazepam (6) Opioid abuse with withdrawal: Plan: RR > 8, will avoid further Narcan as now going through iatrogenic withdrawal with abdominal pain, nausea, vomiting Tylenol added for pain (7) Nausea and vomiting: Plan: Suspect due to iatrogenic opiate withdrawal Compazine 1st line, Phenergan 12.5mg IV q6h PRN second line, lorazepam prn anxiety/nausea will also help with withdrawal-related symptoms Will initially hold off further ondansetron given prolonged QT Plan VTE Prophylaxis - low risk Diet - clears, advance as tolerated Disposition - PCU Admission and Anticipated Discharge Date Admission Date: August 20, 2022 Subjective No overnight events. Patient is more alert today. Complains of nausea, some abdominal pain though better than report given yesterday. She does not remember the events leading up to her unresponsive episode, she remembers feeling nauseated but then remembers waking up here at [facility]. She denies suicidal ideation. She denies use of illicit substances in the hours leading up to her unresponsive episode. Review of Systems Review of Systems: All systems reviewed & are unremarkable except as noted in Subjective Physical Exam Constitutional: WD/WN, vitals as above Respiratory: normal respiratory effort, lungs clear to auscultation Cardiovascular: RRR, no murmur, no edema Gastrointestinal (Abdomen): BS normal, abdomen soft, mild diffuse tenderness Skin: no rashes, warm and dry Psychiatric: A+Ox3, euthymic affect Results & Data Results & Data Vital Signs (Past 12 Hours) Vital Signs Temp Pulse Pulse Resp BP Pulse Ox O2 Del Method 08/21/22 07:05 37.2 C 74 14 133/76 100 Room Air 08/20/22 22:43 86 08/21/22 03:08 36.8 C 77 18 124/79 100 Room Air 08/20/22 22:57 37.4 C 82 18 108/69 99 Room Air PG Care Time/CCT Total # of Minutes Spent Total Time Spent with Patient: Total time spent is greater than 50% in coordination of care (as documented) at patient's floor/unit and/or counseling patient: Coding Level of Care Code 04973 SUB INP/OBS CARE 3/50MIN Diagnoses Unresponsive episode R40.4 Hypothermia T68.XXXA Polysubstance abuse F19.10 Prolonged QT interval R94.31 Depression with anxiety F41.8 Opioid abuse with withdrawal F11.13 Nausea and vomiting R11.2
[2022-08-21] MEDS: ACETAMINOPHEN 1,000 MG/100 ML VIAL IV SCH ×2 (09:20→16:52)
[2022-08-21] MEDS: VANCOMYCIN HCL 1,000 MG in SODIUM CHLORIDE 0.9% 250 ML IV SCH ×2 (09:37→17:26)
[2022-08-21] MEDS: MAGNESIUM SULFATE / D5W 1 GM/100 ML BAG IV SCH ×2 (09:42→11:01)
[2022-08-21] MEDS ORDERED: ACETAMINOPHEN 500 MG TAB PO SCH (10:00)
[2022-08-21] MEDS ORDERED: LORazepam 2 MG/1 ML VIAL IV STA (10:31)
--- NOTE | 2022-08-21 12:08 | Electrocardiogram Report ---
Test Reason : Blood Pressure : / mmHG Vent. Rate : 066 BPM Atrial Rate : 066 BPM P-R Int : 148 ms QRS Dur : 090 ms QT Int : 512 ms P-R-T Axes : 072 083 035 degrees QTc Int : 536 ms Normal sinus rhythm Prolonged QT Abnormal ECG No previous ECGs available Confirmed by Hua Rg ([id number]) on 08/21/2022 12:07:56 PM Referred By: Tonia Mckeon Confirmed By:Tony Rg
--- NOTE | 2022-08-21 12:14 | Electrocardiogram Report ---
Test Reason : Blood Pressure : / mmHG Vent. Rate : 080 BPM Atrial Rate : 080 BPM P-R Int : 116 ms QRS Dur : 080 ms QT Int : 382 ms P-R-T Axes : 003 052 012 degrees QTc Int : 440 ms Normal sinus rhythm Normal ECG When compared with ECG of 20-AUG-2022 13:01, (unconfirmed) Nonspecific T wave abnormality, worse in Inferior leads Nonspecific T wave abnormality now evident in Anterior leads QT has shortened Confirmed by Hua Rg ([id number]) on 08/21/2022 12:13:56 PM Referred By: Tonia Mckeon Confirmed By:Tony Rg
--- NOTE | 2022-08-21 12:14 | Pharmacy Report ---
Pharmacy PK ABX Note - Date of Service August 21, 2022 - Assessment and Plan Assessment 26 year old F receiving vancomycin/cefepime for treatment of empiric indication- unresponsive episode prior to admission. Pertinent microbiologic data includes: blood culture currently pending. Day # 1/2 of antimicrobial therapy. Plan Vancomycin * Loading dose: 1500 mg IV x 1 * Maintenance dose: 1000 mg IV every 8 hours * Regimen is predicted to achieve target AUC/BRENDA of 400-600 mg/L.hr * Trough level ordered to be ordered if continued > 48 hours Pharmacy will continue to follow and will adjust dose/frequency as necessary. Thank you. Pharmacy has transitioned to AUC monitoring for vancomycin. AUC/BRENDA is the preferred PK/PD target and is associated with decreased risk of nephrotoxicity compared to traditional trough targets.
[2022-08-21] MEDS: PROMETHAZINE HCL 12.5 MG in SODIUM CHLORIDE 0.9% 50 ML IV PRN ×2 (14:07→22:07)
[2022-08-21] MEDS: POTASSIUM CHLORIDE / WTR 10 MEQ/100 ML PLCT IV SCH ×2 (19:41→20:42)
[2022-08-22] MEDS: PROCHLORPERAZINE 5 MG in SYRINGE 4 ML IV PRN ×2 (00:04→05:46)
[2022-08-22] MEDS: ACETAMINOPHEN 1,000 MG/100 ML VIAL IV SCH ×3 (00:07→16:56)
[2022-08-22] MEDS: LACTATED RINGER'S 1,000 ML IV SCH (00:07)
[2022-08-22] MEDS: VANCOMYCIN HCL 1,000 MG in SODIUM CHLORIDE 0.9% 250 ML IV SCH ×2 (02:16→09:44)
[2022-08-22 05:05] LABS: Basophils # (auto) 0.02 K/uL (0-0.2); Basophils % (auto) 0.1 %; Hematocrit (blood only) 35.3 % (37.0-47.0); Hemoglobin 12.9 g/dl (12.0-16.0); Immature Granulocytes # (auto) 0.05 K/uL (0.01-0.20); Immature Granulocytes % (auto) 0.4 %; Lymphocytes # (auto) 0.95 K/uL (1.2-3.4); Mean Corpuscular Hemoglobin 29.8 pg (25.0-34.0); Mean Corpuscular Hgb Conc 36.5 g/dL (32.0-36.0); Mean Corpuscular Volume 81.5 fL (80.0-100.0); Mean Platelet Volume 11.2 fL (9.4-12.4); Monocytes % (auto) 8.9 %; Neutrophils # (auto) 11.31 K/uL (1.40-6.50); Neutrophils % (auto) 83.6 %; Platelet Count 274 K/uL (130-400); RDW Coefficient of Variation 11.9 % (11.5-14.5); Red Blood Count 4.33 M/uL (4.20-5.40); White Blood Count 13.53 K/ul (4.8-10.8)
[2022-08-22 05:21] LABS: Anion Gap 8 (3-11); BUN Creatinine Ratio 20.4 (10-20); Blood Urea Nitrogen 11 mg/dl (6-23); Calcium 8.4 mg/dl (8.6-10.3); Carbon Dioxide 22 mmol/L (21-32); Chloride 107 mmol/L (98-107); Creatinine Clr Calc Pharmacy 160.4 ml/min; Est GFR (African American) 149.9 ml/min; Est GFR (Non-African American) 129.3 ml/min; Glucose 115 mg/dl (70-99(Fasting)); Sodium 137 mmol/L (136-145)
[2022-08-22] MEDS: CEFEPIME 2,000 MG in SYRINGE 0 ML IV SCH ×2 (05:47→14:00)
[2022-08-22] MEDS: PANTOprazole 40 MG in SYRINGE 0 ML IV SCH (09:44)
[2022-08-22] MEDS: LORazepam 2 MG/1 ML VIAL IV PRN ×2 (10:32→19:24)
[2022-08-22 12:49] LABS: Amphetamines+Metham, Urine Neg (Neg); Barbiturates, Urine Neg (Neg); Benzodiazepine, Urine Pos (Neg); Cocaine, Urine Neg (Neg); MDMA (Ecstacy), Urine Neg (Neg); Methadone, Urine Neg (Neg); Opiate, Urine Neg (Neg); Phencyclidine, Urine Neg (Neg)
[2022-08-22] MEDS: ESCITALOPRAM OXALATE 20 MG TAB PO SCH (13:58)
[2022-08-22] MEDS: BUPRENORPHINE/NALOXONE 8/2 MG TAB SL SCH (14:00)
--- NOTE | 2022-08-22 14:16 | Electrocardiogram Report ---
Test Reason : Blood Pressure : / mmHG Vent. Rate : 070 BPM Atrial Rate : 070 BPM P-R Int : 114 ms QRS Dur : 074 ms QT Int : 438 ms P-R-T Axes : 020 054 -02 degrees QTc Int : 473 ms Normal sinus rhythm Nonspecific T wave abnormality Abnormal ECG When compared with ECG of 21-AUG-2022 02:07, No significant change was found Confirmed by Javi Sylvester ([id number]) on 08/22/2022 2:16:20 PM Referred By: Tonia Mckeon Confirmed By:Javi Sylvester
--- NOTE | 2022-08-22 14:58 | Hospitalist Progress Note ---
Date of Service August 22, 2022 Assessment & Plan (1) Unresponsive episode: Plan: Suspect overdose vs. serotonin toxicity vs. opiate withdrawal (patient denies illicit substance use at facility however patient's presentation on admission and improvement with Narcan suggests that possibility) Minimally reactive mydriasis, hyperreflexia, drowsy on admission (initial shallow breathing per EMS note) Now in suspected opiate withdrawal following Narcan use Case Management working on transport for patient back to rehab facility With Hx recent heroin use, elevated WBC count on admission, BCx were collected which are negative at 48 hours, Abx stopped Updated mother (Raissa Mac) over the phone 08/21 (phone number [phone]) (2) Lingual facial buccal dyskinesia: Plan: Some irregular uncontrollable movements of the tongue this afternoon, in a patient with a history of Zyprexa nighttime use, and recently several days of treatment with Compazine/Phenergan for nausea secondary to opiate withdrawal. I am most suspicious of tardive/lingual dyskinesia, and have stopped the antiemetics listed above to see if symptoms improve. I have also given a dose of Benadryl for the facial rash/itching. I am closely monitoring for any evidence of anaphylaxis, airway is patent at this time, vitals stable save for elevated BP (in the setting of withdrawal). All medications and foods she has received today, she has had before, and does not have a history of allergies, so I am less suspicious of this possibility. (3) Polysubstance abuse: Plan: Positive for marijuana, cocaine, opiates and Fentanyl on admission to [facility], repeat today positive only for benzodiazepines Suboxone 8/2mg BID started today after discussion with Dr. Jimenez with Addiction Medicine at [facility], to continue on discharge (4) Hypothermia: Plan: Concerning for sepsis vs. environmental Empiric antibiotics with vancomycin/cefepime until blood cultures negative Lactate 6.2 -> 1.0 with fluid resuscitation (5) Prolonged QT interval: Plan: QTc normalized, resumed Lexapro at patient request (6) Depression with anxiety: Plan: Can resume Lexapro, more suspicious of accidental overdose than serotonin toxicity Treat agitation/nausea with lorazepam (7) Opioid abuse with withdrawal: Plan: RR > 8, will avoid further Narcan as now going through iatrogenic withdrawal with abdominal pain, nausea, vomiting Continue Tylenol for pain (8) Nausea and vomiting: Plan: Suspect due to iatrogenic opiate withdrawal Zofran first line, with lorazepam prn anxiety/nausea to also help with withdrawal-related symptoms Plan VTE Prophylaxis - low risk Diet - clears, advance as tolerated Disposition - PCU Admission and Anticipated Discharge Date Admission Date: August 20, 2022 Subjective No overnight events, however this afternoon reports by nursing staff of patient complaint of fat tongue, splotchy face, unable to control tongue. She denies a history of such in the past. She denies trouble breathing, oxygen saturation normal, denies history of allergies. Has had all of the medications and foods she has had today before. Has Zyprexa medication history on her chart. Review of Systems Review of Systems: All systems reviewed & are unremarkable except as noted in Subjective Physical Exam Constitutional: WD/WN, vitals as above ENMT: Tongue does not appear to be obstructing airway, no stridor Respiratory: normal respiratory effort, lungs clear to auscultation Cardiovascular: RRR, no murmur, no edema Gastrointestinal (Abdomen): normal bowel sounds, soft, nontender, no hepatosplenomegaly Skin: red rash on face Psychiatric: alert and oriented, anxious affect Results & Data Results & Data Vital Signs (Past 12 Hours) Vital Signs Temp Pulse Resp BP BP Pulse Ox O2 Del Method 08/22/22 14:35 66 153/92 H 08/22/22 12:05 36.4 C L 82 18 172/107 H 100 Room Air 08/22/22 08:35 36.6 C 68 17 152/85 H 98 Room Air 08/22/22 03:28 36.7 C 66 18 147/89 H 100 Room Air PG Care Time/CCT Total # of Minutes Spent Total Time Spent with Patient: Total time spent is greater than 50% in coordination of care (as documented) at patient's floor/unit and/or counseling patient: Coding Level of Care Code 04312 SUB INP/OBS CARE 3/50MIN Diagnoses Unresponsive episode R40.4 Lingual facial buccal dyskinesia G24.4 Polysubstance abuse F19.10 Hypothermia T68.XXXA Prolonged QT interval R94.31 Depression with anxiety F41.8 Opioid abuse with withdrawal F11.13 Nausea and vomiting R11.2
[2022-08-22] MEDS ORDERED: diphenhydrAMINE 50 MG/ML VIAL IV STA ×2 (14:59→15:03)
[2022-08-22] MEDS ORDERED: diphenhydrAMINE 50 MG/ML VIAL ONE (14:59)
[2022-08-22] MEDS: ONDANSETRON 8MG OD TAB PO PRN (15:09)
[2022-08-23] MEDS: BUPRENORPHINE/NALOXONE 8/2 MG TAB SL SCH ×2 (01:07→08:37)
[2022-08-23] MEDS: LORazepam 2 MG/1 ML VIAL IV PRN ×2 (01:07→12:22)
[2022-08-23] MEDS: ACETAMINOPHEN 1,000 MG/100 ML VIAL IV SCH ×2 (01:08→09:45)
--- NOTE | 2022-08-23 07:17 | Discharge Summary ---
Discharge Summary Date of Service August 23, 2022 Admission HPI Per Admitting Provider Cristin Mac is a 26 year old female who presents to the ER via EMS from drug and alcohol rehabilitation at [facility] due to unresponsive episode. Unable to get any history from the patient therefore history obtained from [facility], EMS and ER notes and providers. Admitted to [facility] on August 18, 2022 with polydrug abuse - heroin, fentanyl, cocaine and alcohol. At 14 yo she started smoking cannabis, 18 yo snorting cocaine, 19 yo started mushrooms, ecstasy, MDMA. Progressed to heroin 4 yo. Last used heroin/fentanyl 08/18. She started Valium for withdrawal symptoms yesterday. Lexapro given last night. Propranolol yesterday morning for migraine. Vistaril and clonidine given yesterday. EMS report patient found lying on bench outside gazebo located outside medical intake of clinic. Found by staff unconscious and unresponsive shortly before lunch - reportedly active with morning activities. Pupils dilated and non- reactive. Admission Exam Per Admitting Provider Constitutional: well developed and + acute distress (vomiting); + not well nourished Eyes: + abnormal pupil size (mydriasis, minimally reactive) ENMT: Mouth: + dry oral mucous membranes Respiratory: + tachypneic; no respiratory distress, no labored breathing, no retractions and does not use accessory muscles Auscultation: lungs clear to auscultation bilaterally; breath sounds present, no diminished lung sounds, no crackles, no rales, no rhonchi and no wheezes Cardiovascular: Rate/Rhythm: regular rate and regular rhythm Heart Sounds: no murmur Extremities: normal capillary refill; no calf tenderness and no pedal edema Gastrointestinal (Abdomen): Percussion/Palpation: + abdomen tender and abdomen soft; no guarding and abdomen not rigid Skin: no rashes, warm and dry Neurologic: awake (GCS 10 E1V4M5) and + confused; + abnormal deep tendon reflexes (4+ b/l equal knee and biceps), + does not move all extremities (not following commands) and no focal motor deficits (unable to adequately examine as not following commands) Motor/Sensory: no tremor Psychiatric: Orientation: alert (to voice); + not oriented x 3 Principal Dx & Hospital Course #1 = Principal Diagnosis (1) Unresponsive episode: Suspect overdose vs. serotonin toxicity vs. opiate withdrawal (patient denies illicit substance use at facility however patient's presentation on admission and improvement with Narcan suggests that possibility) Minimally reactive mydriasis, hyperreflexia, drowsy on admission (initial shallow breathing per EMS note) Now in opiate withdrawal following Narcan use With Hx recent heroin use, elevated WBC count on admission, BCx were collected which are negative at 48 hours, Abx stopped Mother (Raissa Mac) received periodic updates through admission (phone number [phone]) For discharge back to rehab facility (2) Lingual facial buccal dyskinesia: Some irregular uncontrollable movements of the tongue on 08/22, in a patient with a recent history of Zyprexa nighttime use, and recently several days of treatment with relatively [id number] Compazine/Phenergan for nausea secondary to opiate withdrawal. I am most suspicious of tardive/lingual dyskinesia, and have stopped the antiemetics listed above with improvement in this finding. I also gave a dose of Benadryl for the facial rash/itching, with resolution. Vitals stable save for elevated BP (in the setting of withdrawal). All medications and foods she has received this admission she has had before, and does not have a history of allergies, so I am less suspicious of this possibility. (3) Polysubstance abuse: Positive for marijuana, cocaine, opiates and Fentanyl on admission to [facility], repeat today positive only for benzodiazepines Suboxone 8/2mg BID started 08/[address] Jimenez with Addiction Medicine at [facility], to continue on discharge (4) Hypothermia: Concerning for sepsis vs. environmental Empiric antibiotics discontinued 08/22 after negative BCx at 48 hours, suspect due to unresponsive episode Lactate 6.2 -> 1.0 with fluid resuscitation (5) Prolonged QT interval: QTc normalized, resumed Lexapro at patient request (6) Depression with anxiety: Can resume Lexapro, more suspicious of accidental overdose than serotonin toxicity Treat agitation/nausea with lorazepam (7) Opioid abuse with withdrawal: RR > 8, will avoid further Narcan as now going through iatrogenic withdrawal with abdominal pain, nausea, vomiting Continue Tylenol for pain (8) Nausea and vomiting: Suspect due to iatrogenic opiate withdrawal Zofran first line, with lorazepam prn anxiety/nausea to also help with withdrawal-related symptoms Plan [facility]po[facility] Discharge Exam Constitutional WD/WN, vitals as above Psychiatric A+Ox3, euthymic affect Updated Medication List Medication Instructions Recorded Confirmed Type albuterol sulfate 90 mcg/actuation 2 puff inhalation Q4 PRN Shortness 08/20/22 08/20/22 History aerosol inhaler Of Breath Or Wheezing clonidine HCl 0.1 mg tablet 0.1 mg PO TID PRN 08/20/22 08/20/22 History anxiety/restlessness HR>/=70 & BP>100/70 escitalopram oxalate 20 mg tablet 20 mg PO DAILY 08/20/22 08/20/22 History (Lexapro) hydroxyzine pamoate 50 mg capsule 50 mg PO TID PRN as directed 08/20/22 08/20/22 History (Vistaril) multivitamin 1 tab PO DAILY 08/20/22 08/20/22 History olanzapine 10 mg tablet (Zyprexa) 10 mg PO HS 08/20/22 08/20/22 History propranolol 20 mg tablet 20 mg PO Q12 PRN Migraine Headache 08/20/22 08/20/22 History rizatriptan 10 mg tablet 10 mg PO UD PRN Headache 08/20/22 08/20/22 History buprenorphine 8 mg-naloxone 2 mg 1 tab sublingual BID #0 ea 08/23/22 Rx sublingual film (Suboxone) Hospital Stay Data Consultations 08/20/22 14:26 ED Decision to Admit Stat Diagnostic Imagining Performed 08/20/22 12:58 CT cervical spine wo con Stat CT head/brain wo con Stat 08/20/22 15:10 CT Abd and Pelvis [CT abd pelvis IV con only] Stat Discharge Instructions Given to Patient (Per Discharging Provider) You were admitted to the hospital for an unresponsive episode. You were given Narcan and you woke up. We kept you for 48 hours to make sure you did not have evidence of infection in your blood, which fortunately you did not. We started you on Suboxone, and gave you as needed medications for nausea and anxiety. Some of the medications that you were on can interact with the nausea medications to cause some abnormal movements of the face and tongue; we have stopped the offending nausea medications and expect these symptoms to improve. You were discharged back to your rehab facility for ongoing treatment of substance use. Total Time Total Time Spent Total Time Spent (In Minutes): 40 min Coding Level of Care Code 03488 INP/OBS DISCH >30 MIN Diagnoses Unresponsive episode R40.4 Lingual facial buccal dyskinesia G24.4 Polysubstance abuse F19.10 Hypothermia T68.XXXA Prolonged QT interval R94.31 Depression with anxiety F41.8 Opioid abuse with withdrawal F11.13 Nausea and vomiting R11.2
[2022-08-23] MEDS: ESCITALOPRAM OXALATE 20 MG TAB PO SCH (08:35)
[2022-08-23] MEDS: ONDANSETRON 8MG OD TAB PO PRN ×2 (08:41→13:38)
[2022-08-24 03:53] LABS: 7-Aminoclonaz, Confirm NEGATIVE ng/mL (<25); Cocaine, Urine 252 ng/mL (<100); Codeine Urine NEGATIVE ng/mL (<50); Hydro-Alp Ur, GC/MS NEGATIVE ng/mL (<25); Hydrocodone Urine NEGATIVE ng/mL (<50); Hydromor Urine NEGATIVE ng/mL (<50); Hydroxyethylflurazepam, Conf NEGATIVE ng/mL (<50); Hydroxymidazolam Ur, GC/MS NEGATIVE ng/mL (<50); Hydroxytriazolam NEGATIVE ng/mL (<50); Lorazepam, Ur GC/MS NEGATIVE ng/mL (<50); Morphine Urine 443 ng/mL (<50); Nordiazepam, Confirm 1140 ng/mL (<50); Norhydrocodone Conf Ur NEGATIVE ng/mL (<50); Noroxycodone Urine NEGATIVE ng/mL (<50); Oxazepam Ur, GC/MS 377 ng/mL (<50); Oxycodone Urine NEGATIVE ng/mL (<50); Oxymorph Urine NEGATIVE ng/mL (<50); Temazepam, Confirm 892 ng/mL (<50)
[2022-08-25 23:58] LABS: 7-Aminoclonaz, Confirm NEGATIVE ng/mL (<25); Hydro-Alp Ur, GC/MS NEGATIVE ng/mL (<25); Hydroxyethylflurazepam, Conf NEGATIVE ng/mL (<50); Hydroxymidazolam Ur, GC/MS NEGATIVE ng/mL (<50); Hydroxytriazolam NEGATIVE ng/mL (<50); Lorazepam, Ur GC/MS 73 ng/mL (<50); Nordiazepam, Confirm 57 ng/mL (<50); Oxazepam Ur, GC/MS 112 ng/mL (<50); Temazepam, Confirm 111 ng/mL (<50)
== END 2022-08-23 14:21 | disposition alcohol treatment (31) | DRG 884 ==
LOC: EDBD → ED 12:38 → 4W 15:40 → SUATTDRO 15:40 → 4W 16:47